=== PATIENT | male | born 1990 | race Caucasian/White ===

== ENCOUNTER 2019-10-14 17:38 | Emergency (ER) | payer OTHER, SELFPAY ==
[2019-10-14 17:40] VITALS: BP 138/76; PULSE 72; RESP 16; TEMP 37.1; O2SAT 100; BMI 25.0
--- NOTE | 2019-10-14 18:24 | DI.RAD.S_ITS ---
PROCEDURE: XR SHOULDER RT MIN 2V INDICATIONS: Shoulder pain, poss disolation from fall. TECHNIQUE: 2 views of the shoulder were acquired. COMPARISON: None. FINDINGS: Bones: No fractures or dislocations. No suspicious bony lesions. Visualized ribs appear intact. Soft tissues: No suspicious soft tissue calcifications. The visualized lung demonstrates an unremarkable appearance. IMPRESSION: No fracture dislocation can be seen on these images. Dictated by: Bg Car M.D. on 10/14/2019 at 19:01 Approved by: Bg Car M.D. on 10/14/2019 at 19:01
--- NOTE | 2019-10-14 18:28 | ED_ITS ---
HPI - Extremity Injury (Upper) <ZAHRA Saldaña - Last Filed: 10/14/19 20:31> General Chief Complaint: Extremity Injury, Upper Stated Complaint: rt shoulder injury Time Seen by Provider: 10/14/19 18:07 Mode of arrival: Ambulatory History of Present Illness HPI narrative: 29-year-old male presents emergency department complaining of right shoulder pain. He states he was hiking and slipped on the ice and fell on his right hip and his right shoulder with his arm abducted. Patient states he was unable to move his arm after and felt like his shoulder was dislocated. He was treated by ranges on the trail who gave him Tylenol. Patient then started to walk down the trail and was holding his arm when he immediately felt a pop in his shoulder slide back into place. The pain significantly improved that he noticed he still had some pain when he was eating dinner using his fork. Patient is here for further evaluation. He denies any previous injury to his shoulder. He denies any swelling, bruising, elbow pain, head trauma, nausea, vomiting, diarrhea, fevers, chills, or other concerns. Related Data Allergies Allergy/AdvReac Type Severity Reaction Status Date / Time No Known Drug Allergies Allergy Verified 10/14/19 17:45 Review of Systems <ZAHRA Saldaña - Last Filed: 10/14/19 20:31> Review of Systems Narrative: REVIEW OF SYSTEMS: GENERAL: Denies fever or chills. HENT: No head trauma. EYES: No double vision or vision loss. CARDIOVASCULAR: No chest pain or syncope. RESPIRATORY: No shortness of breath or cough. GASTROINTESTINAL: No nausea, vomiting, diarrhea, or constipation. MUSCULOSKELETAL: Complains of right shoulder pain, see HPI. INTEGUMENTARY: No rash, lesions, or pruritus. NEURO: No numbness, tingling. PSYCH: No behavior or mood changes. Patient History <ZAHRA Saldaña - Last Filed: 10/14/19 20:31> Medical History No significant medical problems (Acute) Social History Smoking Status: Never smoker Smoking Status: Never smoker Alcohol type: beer, wine and hard liquor Substance Use Type: does not use Exam <ZAHRA Saldaña - Last Filed: 10/14/19 20:31> Initial Vital Signs Initial Vital Signs: Vital Signs Temperature 98.7 F 10/14/19 17:40 Pulse Rate 72 10/14/19 17:40 Respiratory Rate 16 10/14/19 17:40 Blood Pressure 138/76 10/14/19 17:40 Pulse Oximetry 100 10/14/19 17:40 PHYSICAL EXAMINATION: GENERAL: Well groomed, alert, and cooperative. Answers questions promptly and appropriately. Vital signs noted. HENT: Normocephalic, atraumatic. EYES: Symmetrical, sclera white, no periorbital swelling. CARDIOVASCULAR: Regular rate. RESPIRATORY: Normal respiratory rate, trachea midline, airway patent. No stridor, nasal flaring or accessory muscle use. MUSCULOSKELETAL: No clavicle tenderness. Shoulder without significant tenderness, increased pain with external rotation. Patient able to extend, flex, and internally rotate shoulder without significant pain. Equal contracts specialist strength bilaterally, equal deltoid, and forearm strength.. Normal gait and coordination. Equal tone and mass bilaterally. EXTREMITIES: CMS intact. No pedal edema. SKIN: Warm, dry, soft, appropriate color for ethnicity. No lesions, rashes, or wounds. NEURO: Alert and Oriented X 3. No sensory deficits. PSYCH: Appropriate affect and mood. <Colby Dumont DO - Last Filed: 10/14/19 20:33> Initial Vital Signs Initial Vital Signs: Vital Signs Temperature 98.7 F 10/14/19 17:40 Pulse Rate 72 10/14/19 17:40 Respiratory Rate 16 10/14/19 17:40 Blood Pressure 138/76 10/14/19 17:40 Pulse Oximetry 100 10/14/19 17:40 Course <ZAHRA Saldaña - Last Filed: 10/14/19 20:31> Course Course Narrative: Patient was given Toradol to help with pain, patient reports improved soreness. Orders Ordered: ED Orders 10/14/19 18:24 XR shoulder RT min 2V Stat Discontinued Medications Ketorolac Tromethamine (Toradol) 30 mg IM NOW ONE Stop: 10/14/19 18:26 Last Admin: 10/14/19 18:48 Dose: 30 mg Documented by: DAWIT Vital Signs Vital signs: Vital Signs - 8 hr 10/14/19 17:40 10/14/19 19:47 Temperature 98.7 F Pulse Rate 72 64 Respiratory Rate 16 16 Blood Pressure 138/76 Pulse Oximetry 100 98 <Colby Dumont DO - Last Filed: 10/14/19 20:33> Orders Ordered: ED Orders 10/14/19 18:24 XR shoulder RT min 2V Stat Discontinued Medications Ketorolac Tromethamine (Toradol) 30 mg IM NOW ONE Stop: 10/14/19 18:26 Last Admin: 10/14/19 18:48 Dose: 30 mg Documented by: DAWIT Vital Signs Vital signs: Vital Signs - 8 hr 10/14/19 17:40 10/14/19 19:47 Temperature 98.7 F Pulse Rate 72 64 Respiratory Rate 16 16 Blood Pressure 138/76 Pulse Oximetry 100 98 MDM - Extremity Injury (Upper) <ZAHRA Saldaña - Last Filed: 10/14/19 20:31> Medical Records Attestation: I reviewed the patient's medical records. Lab Data Attestation: I reviewed the patient's lab results. Imaging Data Extremity x-ray #1: Radiologist's Impression: [address] [address] XRay Report Signed Patient: Sam Rizzo CMR#: [id number] : 1990Acct:[id number] Age/Sex: 29 / MDate of Service: 10/14/19 Loc: ED Accession Number: [id number] Procedure: XR shoulder RT min 2V Ordering Provider: Daily Goldberg PROCEDURE: XR SHOULDER RT MIN 2V INDICATIONS: Shoulder pain, poss disolation from fall. TECHNIQUE: 2 views of the shoulder were acquired. COMPARISON: None. FINDINGS: Bones: No fractures or dislocations. No suspicious bony lesions. Visualized ribs appear intact. Soft tissues: No suspicious soft tissue calcifications. The visualized lung demonstrates an unremarkable appearance. IMPRESSION: No fracture dislocation can be seen on these images. Dictated by: Bg Car M.D. on 10/14/2019 at 19:01 Approved by: Bg Car M.D. on 10/14/2019 at 19:01 [facility] Narrative Medical decision making narrative: 29-year-old male presents emergency department for right shoulder pain after a possible dislocation from falling. Patient has no obvious deformities in exhibits equal deltoid, forearm, contracts specialist str ength bilaterally. Differential includes muscle strain, possible dislocation relocation, and rotator cuff injury. Less likely fracture due to negative x- ray. Patient was referred to an orthopedic for further evaluation. Patient was given Toradol to help with pain. He was encouraged to use Tylenol and ibuprofen as needed for pain. Return precautions given. Patient agrees to plan of care verbalized understanding. Discharge Plan Departure Patient Disposition: Home Clinical Impression: Injury of shoulder Qualifiers: Encounter type: initial encounter Laterality: right Qualified Code(s): S49.91XA - Unspecified injury of right shoulder and upper arm, initial encounter Discharge Date/Time: 10/14/19 19:49 Instructions: DI for Rotator Cuff Injury Activity Restrictions/Additional Instructions: Thank you for entrusting me with your care today. As discussed, your x-rays are negative for any fractures. You may take Tylenol and ibuprofen as needed for pain over the next few days. Do not overly stressed your shoulder. Follow up with the orthopedic listed below. Return emergency department for any new or worsening symptoms such as chest pain, shortness of breath, abdominal pain, or other concerns. Referrals: Joaquín eFnton MD [Physician] - (Right shoulder pain, possible previous dislocation, possible rotator cuff injury) <Colby Dumont DO - Last Filed: 10/14/19 20:33> Sign Out Provider Sign Out Attestation: Dr Dumont Co-Sign Statement: I was available for consultation during this patient's emergency department visit. This chart is signed by myself for administrative purposes only. I did not have direct contact with this patient during this visit. They were seen independently by the APC.
[2019-10-14] MEDS: KETOROLAC 60 MG/2 ML VIAL 30 MG IM (18:48)
[2019-10-14 19:47] VITALS: PULSE 64; RESP 16; O2SAT 98
== END 2019-10-14 19:49 | disposition home or self-care (01) ==
PROVIDERS: Emergency Provider Nurse Practitioner
DX: S49.91XA Unspecified injury of right shoulder and upper arm, initial encounter (principal); W19.XXXA Unspecified fall, initial encounter; Y93.29 Activity, other involving ice and snow
CPT/HCPCS: 73030; 96372; 99283; J1885